=== PATIENT | male | born 1970 | race Caucasian/White ===

== ENCOUNTER 2020-03-27 12:01 | Emergency (ER) | payer OTHER ==
[~2020-03-27] VITALS: Ht 182.9 cm; Wt 100.0 kg
[2020-03-27 13:40] LABS: BASOPHILS % (AUTO) 0.3 % (0.0-2.0); EOSINOPHILS % (AUTO) 0 % (1.0-6.0); HEMATOCRIT 34.2 % (41-53); LYMPHOCYTES # (AUTO) 0.6 K/uL (1.0-4.8); LYMPHOCYTES % (AUTO) 4.7 % (22.0-44.0); MEAN CORPUSCULAR HGB CONC 32.3 G/dL (31.0-37.0); MEAN CORPUSCULAR VOLUME 78 fL (80-100); MONOCYTES # (AUTO) 0.7 K/uL (0.1-1.0); MONOCYTES % (AUTO) 4.9 % (2.0-9.0); NEUTROPHILS # (AUTO) 12.2 K/uL (1.8-7.7); PLATELET COUNT (AUTO) 360 K/uL (150-450); RED CELL DISTRIBUTION WIDTH 14.3 % (11.5-14.5)
[2020-03-27 13:43] LABS: NEUTROPHILS % (AUTO) 90.1 % (40.0-70.0)
[2020-03-27] MEDS ORDERED: ACETAMINOPHEN 325 MG TABLET PO ONE (13:45)
[2020-03-27] MEDS ORDERED: CefTRIAXone 1 GM/DEXTROSE 50 ML IV ONE (13:45)
[2020-03-27] MEDS ORDERED: DOXYCYCLINE HYCLATE 100 MG in DEXTROSE 5%-WATER 100 ML IV ONE (13:45)
[2020-03-27 13:49] LABS: COVID AG,FIA SOURCE NASAL SWAB
[2020-03-27 13:51] LABS: ANION GAP 6 mmol/L (8-16); CALCIUM, TOTAL 8.9 mg/dL (8.8-10.5); CARBON DIOXIDE 32 mmol/L (22-29); CHLORIDE 92 mmol/L (98-107); CREATININE 0.98 mg/dL (0.60-1.30); GLOMERULAR FILTR. RATE CALC > 60 mL/min (>60); GLUCOSE,RANDOM 163 mg/dL (70-110); POTASSIUM 3.7 mmol/L (3.5-5.1); SODIUM SERUM 130 mmol/L (136-145); UREA NITROGEN, BLOOD 11 mg/dL (7-18)
[2020-03-27 13:58] LABS: LACTIC ACID 1.9 mmol/L (0.4-2.0)
[2020-03-27 14:04] LABS: ALANINE AMINOTRANSFERASE 31 U/L (12-78); ALBUMIN 2.4 g/dL (3.4-5.0); ALKALINE PHOSPHATASE 116 U/L (46-116); ASPARTATE AMINOTRANSFERASE 17 U/L (15-37); BILIRUBIN,TOTAL 0.6 mg/dL (0.1-1.0); LIPASE 38 U/L (73-393); TOTAL PROTEIN, SERUM 7.2 g/dL (6.4-8.2)
[2020-03-27 14:11] LABS: INFLUENZA TYPE A POSITIVE FOR TYPE A (NEGATIVE); INFLUENZA TYPE B NEGATIVE FOR TYPE B (NEGATIVE)
[2020-03-27] MEDS ORDERED: OSELTAMIVIR PHOSPHATE 75 MG CAPSULE PO ONE (14:30)
[2020-03-27] MEDS ORDERED: ONDANSETRON HCL 4 MG TABLET PO ONE (15:00)
[2020-03-27 17:11] VITALS: BP 139/79
== END 2020-03-27 17:15 | disposition home or self-care (01) ==
LOC: EMS 12:02
DX: J18.9 Pneumonia, unspecified organism (principal); J11.1 Influenza due to unidentified influenza virus with other respiratory manifestations; F11.90 Opioid use, unspecified, uncomplicated; Z20.828 Contact with and (suspected) exposure to other viral communicable diseases; Z59.0 Homelessness
CPT/HCPCS: 36415; 71045; 80053; 83605; 83690; 85025; 87426; 87804; 93005; 96365; 96366; 96368; 99285; J0696; J3490; J7060; Q0162